=== PATIENT | male | born 1950 | race Caucasian/White ===

== ENCOUNTER → 2021-03-06 | Day surgery (SDC) | payer MEDICARE, OTHER ==
[~2021-03-06] MED LIST: FLOMAX 0.4 MG0.4 MG PO; NEXIUM20 MG PO; PANTOPRAZOLE SO40 MG PO
[2021-03-06 09:31] LABS: HCT 50.4 % (42.0-52.0); MCH 30.4 pg (25.0-31.0); MCHC 33.7 g/dL (32.0-36.0); MPV 8.3 fL (6.0-9.5); RBC 5.6 M/uL (4.70-6.00); RDW 14.1 % (11.5-14.0); WBC 9.2 K/uL (4.0-10.5)
[2021-03-06 09:49] LABS: ALBUMIN 3.7 g/dL (3.4-5.0); BILIRUBIN - TOTAL 0.7 mg/dL (0.2-1.0); BUN/CREAT RATIO (CALC) 19.4 RATIO; CREATININE 0.98 mg/dL (0.67-1.17); GLOBULIN (CALCULATION) 3.8 g/dL; TOTAL PROTEIN 7.5 g/dL (6.4-8.2)
== END | disposition home or self-care (01) ==
LOC: FAS 08:36
PROVIDERS: Surgery
DX: Z12.11 Encounter for screening for malignant neoplasm of colon (principal); K63.5 Polyp of colon; K21.9 Gastro-esophageal reflux disease without esophagitis; J44.9 Chronic obstructive pulmonary disease, unspecified; N40.0 Benign prostatic hyperplasia without lower urinary tract symptoms; I10 Essential (primary) hypertension; M81.0 Age-related osteoporosis without current pathological fracture; Z79.899 Other long term (current) drug therapy; Z20.822 Contact with and (suspected) exposure to COVID-19; Z87.898 Personal history of other specified conditions; Z98.890 Other specified postprocedural states; Z87.891 Personal history of nicotine dependence; Z86.010 Personal history of colon polyps; K29.70 Gastritis, unspecified, without bleeding; K20.90 Esophagitis, unspecified without bleeding
CPT/HCPCS: 36415; 80053; 88305; J2704; J7120